=== PATIENT | male | born 1985 | race American Indian/Alaskan Native ===

== ENCOUNTER 2017-01-16 21:31 | Emergency (ER) | payer OTHER ==
[2017-01-17] MEDS ORDERED: MOTRIN PO ONE (02:10)
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
[2017-01-17 03:56] VITALS: BP 122/85
== END 2017-01-17 03:56 | disposition home or self-care (01) ==
LOC: ED 21:31
DX: S46.912A Strain of unspecified muscle, fascia and tendon at shoulder and upper arm level, left arm, initial encounter (principal); V89.2XXA Person injured in unspecified motor-vehicle accident, traffic, initial encounter; Y93.89 Activity, other specified; Y92.89 Other specified places as the place of occurrence of the external cause; Y99.8 Other external cause status
CPT/HCPCS: 99283